=== PATIENT | male | born 1965 | race Caucasian/White ===

== ENCOUNTER 2016-11-27 15:40 | Observation (INO) | payer OTHER ==
[~2016-11-27] VITALS: Ht 180.3 cm; Wt 94.9 kg
[2016-11-27 16:08] LABS: HEMATOCRIT 41.9 % (38.0-50.0); MCH 28.9 PG (29.0-34.0); MCHC 34.4 G/DL (30.0-36.0); MEAN PLAT.VOLUME 10.2 uM^3 (9.0-12.4); PLATELET COUNT 169 K/uL (156-360); RBC DIS.WIDTH-CV 14.2 % (11.8-14.6); RBC DIS.WIDTH-SD 42.9 % (39-53); RED BLOOD COUNT 4.99 M/uL (4.00-5.50); WHITE BLOOD COUNT 4.9 K/uL (4.1-10.2)
[2016-11-27 16:16] LABS: CHLORIDE 108 mEq/L (99-109); POTASSIUM 3.7 mEq/L (3.7-5.4); SODIUM 141 mEq/L (136-147)
[2016-11-27 16:18] LABS: GLUCOSE 102 mg/dL (70-99)
[2016-11-27 16:19] LABS: ANION GAP 8 MEQ/L (2-14)
[2016-11-27 16:22] LABS: GFR ESTIMATE (CALCULATED) > 59 mL/min/
[2016-11-27 16:23] LABS: UREA NITROGEN (BUN) 17 mg/dL (9-23)
[2016-11-27 16:30] LABS: TROP-I INTERPRETATION NEGATIVE; TROPONIN-I < 0.01 ng/mL (0.0-0.30)
[2016-11-27 16:45] LABS: D-DIMER ELISA 0.42 mg/L FEU (< 0.57)
[2016-11-27] MEDS ORDERED: PLAVIX75 MG PO (19:26)
[2016-11-27] MEDS ORDERED: LIPITOR40 MG PO (19:26)
[2016-11-27] MEDS ORDERED: LOPRESSOR100 M1 PO (19:26)
[2016-11-27] MEDS ORDERED: IMDUR30 MG PO (19:26)
[2016-11-27] MEDS ORDERED: ZESTRIL40 MG PO (19:26)
[2016-11-27] MEDS ORDERED: NITROSTAT0.4 MG SL (19:26)
[2016-11-27] MEDS ORDERED: LO-DOSE ASPIRIN81 M1 PO (19:27)
[2016-11-27 20:26] VITALS: BP 145/83
[2016-11-27 23:46] LABS: TROP-I INTERPRETATION NEGATIVE; TROPONIN-I 0.01 ng/mL (0.0-0.30)
[2016-11-28] VITALS: BP 108/68
[2016-11-28 04:20] VITALS: BP 117/73
[2016-11-28 04:40] LABS: TROP-I INTERPRETATION NEGATIVE; TROPONIN-I < 0.01 ng/mL (0.0-0.30)
[2016-11-28 07:53] VITALS: BP 126/77
== END 2016-11-28 12:00 | disposition home or self-care (01) ==
LOC: EME 15:40 → 5WEST 19:20 → EDOF 19:20 → 5WEST 19:56
PROVIDERS: Physician Assistant
DX: R07.89 Other chest pain (principal); I25.10 Atherosclerotic heart disease of native coronary artery without angina pectoris; Z95.5 Presence of coronary angioplasty implant and graft; I25.2 Old myocardial infarction; I10 Essential (primary) hypertension; E78.5 Hyperlipidemia, unspecified; Z82.49 Family history of ischemic heart disease and other diseases of the circulatory system; Z79.02 Long term (current) use of antithrombotics/antiplatelets; Z79.82 Long term (current) use of aspirin
CPT/HCPCS: 71020; 80048; 84484; 85027; 85379; 93005; G0378; J1650; J2270; J2765

== ENCOUNTER 2017-08-20 17:46 | Inpatient (IN) | payer OTHER ==
[~2017-08-20] VITALS: Ht 180.3 cm; Wt 102.5 kg
[~2017-08-20 17:46] MED LIST: IMDUR30 MG PO; LIPITOR40 MG PO; LO-DOSE ASPIRIN81 M1 PO; LOPRESSOR100 M1 PO; NITROSTAT0.4 MG SL; PLAVIX75 MG PO; ZESTRIL40 MG PO
[2017-08-20 18:12] LABS: HEMATOCRIT 38.5 % (38.0-50.0); MCH 28.2 PG (29.0-34.0); MCHC 32.7 G/DL (30.0-36.0); MCV 86.1 FL (86-99); MEAN PLAT.VOLUME 10.7 uM^3 (9.0-12.4); PLATELET COUNT 192 K/uL (156-360); RBC DIS.WIDTH-CV 14.5 % (11.8-14.6); RBC DIS.WIDTH-SD 45.3 % (39-53); RED BLOOD COUNT 4.47 M/uL (4.00-5.50); WHITE BLOOD COUNT 6.5 K/uL (4.1-10.2)
[2017-08-20 18:23] LABS: CHLORIDE 109 mEq/L (99-109); POTASSIUM 4.7 mEq/L (3.7-5.4); SODIUM 140 mEq/L (136-147)
[2017-08-20 18:25] LABS: GLUCOSE 111 mg/dL (70-99)
[2017-08-20 18:26] LABS: ANION GAP 5 MEQ/L (2-14)
[2017-08-20 18:28] LABS: GFR ESTIMATE (CALCULATED) 57 mL/min/
[2017-08-20 18:29] LABS: UREA NITROGEN (BUN) 17 mg/dL (9-23)
[2017-08-20 18:36] LABS: TROP-I INTERPRETATION NEGATIVE; TROPONIN-I < 0.01 ng/mL (0.0-0.30)
[2017-08-20] MEDS ORDERED: RANEXA500 MG PO (21:16)
[2017-08-20] MEDS ORDERED: ACID CONTROLLER20 MG PO (21:17)
[2017-08-20 21:52] LABS: C-REACTIVE PROTEIN 3.8 MG/L (0-10); SAMPLE HEMOLYSIS CHECK 0; SAMPLE ICTERIC CHECK 0; SAMPLE LIPEMIA CHECK 0
[2017-08-21] VITALS (7 sets, daily range): BP systolic 110–150; BP diastolic 60–90
[2017-08-21 00:40] LABS: TROP-I INTERPRETATION NEGATIVE; TROPONIN-I < 0.01 ng/mL (0.0-0.30)
[2017-08-21 06:02] LABS: C3 COMPLEMENT 102 MG/DL (58-170); C4 COMPLEMENT 35 MG/DL (10-40)
[2017-08-22 04:12] VITALS: BP 114/80
[2017-08-22 05:50] LABS: ANION GAP 9 MEQ/L (2-14); CHLORIDE 107 MEQ/L (99-109); GFR ESTIMATE (CALCULATED) > 59 mL/min/; GLUCOSE 107 mg/dL (70-99); POTASSIUM 4.5 MEQ/L (3.7-5.4); SAMPLE HEMOLYSIS CHECK 0; SAMPLE ICTERIC CHECK 0; SAMPLE LIPEMIA CHECK 0; SODIUM 140 MEQ/L (136-147); UREA NITROGEN (BUN) 17 mg/dL (9-23)
[2017-08-22 06:36] LABS: MCH 27.6 PG (29.0-34.0); MCHC 31.4 G/DL (30.0-36.0); MCV 87.7 FL (86-99); MEAN PLAT.VOLUME 11.2 uM^3 (9.0-12.4); PLATELET COUNT 165 K/uL (156-360); RBC DIS.WIDTH-CV 14.4 % (11.8-14.6); RBC DIS.WIDTH-SD 46.2 % (39-53); RED BLOOD COUNT 3.99 M/uL (4.00-5.50); WHITE BLOOD COUNT 8.7 K/uL (4.1-10.2)
[2017-08-22 07:00] VITALS: BP 96/76
[2017-08-22 11:00] VITALS: BP 138/88
[2017-08-22 15:00] VITALS: BP 109/81
[2017-08-22 19:31] VITALS: BP 128/76
[2017-08-22 23:21] VITALS: BP 117/72
== END 2017-08-23 00:19 | disposition short-term general hospital (02) | DRG 315 ==
LOC: EME 17:46 → 4EAST 23:27 → EDOF 23:27 → ENRESERV 23:33 → 4EAST 08-21 00:32 → ENPENDDIS 08-22 → 4EAST 08-23 00:19
PROVIDERS: Hospitalist
DX: I31.3 Pericardial effusion (noninflammatory) (principal); I31.4 Cardiac tamponade; N17.9 Acute kidney failure, unspecified; I25.10 Atherosclerotic heart disease of native coronary artery without angina pectoris; R91.1 Solitary pulmonary nodule; I10 Essential (primary) hypertension; E78.00 Pure hypercholesterolemia, unspecified; I25.2 Old myocardial infarction; E66.9 Obesity, unspecified; Z68.30 Body mass index [BMI] 30.0-30.9, adult; Z95.1 Presence of aortocoronary bypass graft; Z95.5 Presence of coronary angioplasty implant and graft; Z79.82 Long term (current) use of aspirin; Z79.02 Long term (current) use of antithrombotics/antiplatelets; Z82.49 Family history of ischemic heart disease and other diseases of the circulatory system
CPT/HCPCS: 71020; 71275; 74174; 80048; 83735; 83880; 84443; 84484; 85027; 85379; 85651; 86038; 86140; 86160; 86160 90; 93005; 93306; 99281; 99285; J1644; J7030; J7512

== ENCOUNTER 2017-08-27 10:48 | Emergency (ER) | payer OTHER ==
[~2017-08-27] VITALS: Ht 180.3 cm; Wt 94.2 kg
[~2017-08-27 10:48] MED LIST changes: +ACID CONTROLLER20 MG PO; +RANEXA500 MG PO
[2017-08-27 11:47] LABS: EOSINOPHIL (%) 3.1 % (0-5); EOSINOPHIL COUNT 0.2 K/uL (0-0.3); HEMATOCRIT 45.6 % (38.0-50.0); IMMATURE GRANULOCYTE (%) 0.2 % (0.0-0.7); INSTRUMENT ABS NEUTROPHIL CT 3.6 K/uL; LYMPHOCYTE COUNT 0.7 K/uL (1.0-2.8); MCH 27.1 PG (29.0-34.0); MCHC 32.9 G/DL (30.0-36.0); MCV 82.3 FL (86-99); MEAN PLAT.VOLUME 9.6 uM^3 (9.0-12.4); MONOCYTE COUNT 0.6 K/uL (0-0.8); NEUTROPHIL (%) 70.5 % (45-76); NEUTROPHIL COUNT 3.6 K/uL (1.8-6.4); PLATELET COUNT 247 K/uL (156-360); RBC DIS.WIDTH-CV 13.5 % (11.8-14.6); RBC DIS.WIDTH-SD 40.3 % (39-53); RED BLOOD COUNT 5.54 M/uL (4.00-5.50); WHITE BLOOD COUNT 5.2 K/uL (4.1-10.2)
[2017-08-27 11:56] LABS: CHLORIDE 105 mEq/L (99-109); POTASSIUM 3.7 mEq/L (3.7-5.4); SODIUM 136 mEq/L (136-147)
[2017-08-27 11:58] LABS: GLUCOSE 107 mg/dL (70-99)
[2017-08-27 12:00] LABS: ANION GAP 8 MEQ/L (2-14)
[2017-08-27 12:02] LABS: GFR ESTIMATE (CALCULATED) > 59 mL/min/
[2017-08-27 12:03] LABS: UREA NITROGEN (BUN) 18 mg/dL (9-23)
[2017-08-27] MEDS ORDERED: ZOFRAN4 MG PO (14:07)
[2017-08-27 14:39] VITALS: BP 159/97
== END 2017-08-27 14:45 | disposition home or self-care (01) ==
LOC: EME 10:48
PROVIDERS: Emergency Medicine
DX: R11.2 Nausea with vomiting, unspecified (principal); R19.7 Diarrhea, unspecified; I11.0 Hypertensive heart disease with heart failure; I50.9 Heart failure, unspecified; E78.5 Hyperlipidemia, unspecified; I25.2 Old myocardial infarction; Z95.1 Presence of aortocoronary bypass graft; Z95.5 Presence of coronary angioplasty implant and graft
CPT/HCPCS: 80048; 85025; 87493; 99281; 99284; J2405; J7030

== ENCOUNTER 2017-12-17 10:06 | Emergency (ER) | payer OTHER ==
[~2017-12-17] VITALS: Ht 180.3 cm; Wt 101.5 kg
[~2017-12-17 10:06] MED LIST changes: +ZOFRAN4 MG PO
[2017-12-17] MEDS ORDERED: SKELAXIN800 MG PO (14:02)
[2017-12-17 14:19] VITALS: BP 148/96
== END 2017-12-17 14:20 | disposition home or self-care (01) ==
LOC: EME 10:06
DX: M54.2 Cervicalgia (principal); M43.6 Torticollis; R13.10 Dysphagia, unspecified; I10 Essential (primary) hypertension; E78.00 Pure hypercholesterolemia, unspecified; Z95.1 Presence of aortocoronary bypass graft; Z95.5 Presence of coronary angioplasty implant and graft; Z79.02 Long term (current) use of antithrombotics/antiplatelets; Z79.82 Long term (current) use of aspirin
CPT/HCPCS: 70491; 87651 90; 99281; 99284; J1100

== ENCOUNTER 2018-02-14 16:31 | Emergency (ER) | payer OTHER ==
[~2018-02-14] VITALS: Ht 180.3 cm; Wt 97.7 kg
[~2018-02-14 16:31] MED LIST changes: +SKELAXIN800 MG PO
[2018-02-14 17:15] LABS: BASOPHIL (%) 0.5 % (0-1); HEMATOCRIT 37.8 % (38.0-50.0); HEMOGLOBIN 12.7 G/DL (12.5-16.6); LYMPHOCYTE (%) 32.6 % (15-42); LYMPHOCYTE COUNT 1.3 K/uL (1.0-2.8); MCHC 33.6 G/DL (30.0-36.0); MCV 83.3 FL (86-99); MONOCYTE (%) 10.4 % (3-12); MONOCYTE COUNT 0.4 K/uL (0-0.8); NEUTROPHIL (%) 55.5 % (45-76); NEUTROPHIL COUNT 2.2 K/uL (1.8-6.4); PLATELET COUNT 204 K/uL (156-360); RBC DIS.WIDTH-CV 14.3 % (11.8-14.6); RBC DIS.WIDTH-SD 43.4 % (39-53); RED BLOOD COUNT 4.54 M/uL (4.00-5.50); WHITE BLOOD COUNT 3.9 K/uL (4.1-10.2)
[2018-02-14 17:24] LABS: ALBUMIN 4.1 g/dL (3.2-4.8); CHLORIDE 107 mEq/L (99-109); POTASSIUM 4.4 mEq/L (3.7-5.4); SODIUM 141 mEq/L (136-147)
[2018-02-14 17:25] LABS: MAGNESIUM 2.3 mg/dL (1.3-2.7)
[2018-02-14 17:26] LABS: GLUCOSE 98 mg/dL (70-99); TOTAL PROTEIN 6.5 g/dL (6.4-8.3)
[2018-02-14 17:28] LABS: TOTAL BILIRUBIN 0.4 mg/dL (0.0-1.0)
[2018-02-14 17:30] LABS: ALKALINE PHOSPHATASE 83 IU/L (3-129); CREATININE 1.4 mg/dL (0.6-1.3); GFR ESTIMATE (CALCULATED) 57 mL/min/ (58.99-99999)
[2018-02-14 17:31] LABS: UREA NITROGEN (BUN) 24 mg/dL (9-23)
[2018-02-14 17:32] LABS: AST (GOT) 19 IU/L (2-34)
[2018-02-14 17:33] LABS: ALT (GPT) 23 IU/L (3-49)
[2018-02-14 17:36] LABS: TROP-I INTERPRETATION NEGATIVE; TROPONIN-I < 0.01 ng/mL (0.0-0.30)
[2018-02-14 21:02] VITALS: BP 130/93
== END 2018-02-14 21:37 | disposition home or self-care (01) ==
LOC: EME 16:31
PROVIDERS: Emergency Medicine
DX: I95.1 Orthostatic hypotension (principal); R51 Headache; R42 Dizziness and giddiness; I10 Essential (primary) hypertension; E78.5 Hyperlipidemia, unspecified; K21.9 Gastro-esophageal reflux disease without esophagitis; I50.9 Heart failure, unspecified; I25.2 Old myocardial infarction; Z79.82 Long term (current) use of aspirin; Z79.02 Long term (current) use of antithrombotics/antiplatelets; Z95.1 Presence of aortocoronary bypass graft; Z95.5 Presence of coronary angioplasty implant and graft; Z87.820 Personal history of traumatic brain injury
CPT/HCPCS: 80053; 83735; 84484; 85025; 93005; 99281; 99285; J7040